=== PATIENT | female | born 1975 | race Caucasian/White ===

== ENCOUNTER 2016-05-02 10:35 | Emergency (ER) | payer BC ==
[~2016-05-02] VITALS: Ht 157.5 cm; Wt 65.0 kg
[~2016-05-02 10:35] MED LIST: IBUP800; OXYC-360 PO; PRENCAP10 PO
[2016-05-02 10:38] VITALS: BP 133/70; PULSE 75; RESP 12; TEMP 98.1; O2SAT 99
--- NOTE | 2016-05-02 11:22 | PD ---
HPI Chief Complaint: Injury Time Seen by Provider: 11:16 Travel History International Travel<30 days: No Contact w/Intl Traveler<30days: No Traveled to known affect area: No History of Present Illness HPI Patient is a 40-year-old female presenting of right calf swelling. Present for 5 days. Worsening over the last 2. Some discoloration and tenderness, worse with walking. On 04/06/2016 she had arthroscopic meniscus repair by Dr. Sol. She was fairly mobile within 24 hours and denies any reduced activity. She has tried applying heat which did not help as she thought initially this was a muscle cramp. She states it is somewhat warm. She is on oral contraceptions but denies smoking and recent inability or long distance travel. She denies a history of DVT. No history of hypercoagulable disorders. She does state that she she burned herself on the distal lateral right calf with a heating pad to this area has not been bothering her and has not had any purulent drainage from the site. She denies fever, chills, nausea, vomiting, abdominal pain, muscle weakness, paresthesias, chest pain or shortness of breath. PFSH Past Medical History Diminished Hearing: No ?: Not Past Surgical History Gynecologic Surgery: Yes (ovary removed) Social History Alcohol Use: Yes (FEW DRINKS PER WEEK) Tobacco Use: No Substance Use: No Allergies-Medications (Allergen,Severity, Reaction): Coded Allergies: No Known Allergies (Verified , 05/02/16) Reported Meds & Prescriptions Reported Meds & Active Scripts Active Xarelto (Rivaroxaban) 15 Mg Tab 15 Mg PO Q12HR 21 Days Reported [ Control] 1 Tab PO HS Oxycodone-Acetaminophen 5-325 mg Tab 1-2 Tab PO Q6H PRN Review of Systems Except as stated in HPI: all other systems reviewed are Neg Physical Exam Narrative GENERAL: Well-developed and well-nourished adult female in no acute distress. SKIN: 5 mm shallow well-healing abrasion to the right distal lateral calf. No induration, fluctuance, tenderness, warmth or erythema surrounding. No exudate. Warm and dry. Good turgor without tenting. HEAD: Normocephalic and atraumatic. EYES: PERRL bilaterally, 5mm. EOMI bilaterally. No injection or icterus present. No proptosis. Lids without edema or erythema. NECK: Supple, no midline tenderness, crepitus or step-offs. Trachea midline, no JVD. No cervical or facial lymphadenopathy. CARDIOVASCULAR: Regular rate and rhythm without murmurs, rubs, clicks or gallops. Dorsalis pedis and posterior tibial pulses 2+ bilaterally. Cap refill less than 2 seconds distal tip of all toes of right foot. Right calf is 37 cm and slightly increased rubor diffusely without blanching, positive right Homans sign. Minimal warmth present. Left calf is 37 cm. RESPIRATORY: Clear to auscultation bilaterally with symmetrical rise and fall, no distress or use of accessory muscles. GASTROINTESTINAL: Non-tender, non-distended. Normal bowel sounds all 4 quadrants. No masses or organomegaly present. MUSCULOSKELETAL: Right knee has mild edema which is improving by history with 3 well-healed. No tenderness to palpation of the knee, redness or warmth. Patient can flex the knee to 90 and extend completely Patient freely moving all four extremities spontaneously. Extremities without clubbing or cyanosis. No obvious deformities. NEUROLOGIC: CN II-XII grossly intact. Awake and alert. Strength 5/5 bilateral knee flexion, knee extension, plantar dorsiflexion. Sensation intact to the distal tip of all toes of right foot. Normal speech. PSYCHIATRIC: Appropriate mood and affect; insight and judgment normal. Data Data Last Documented VS Vital Signs Date Time Temp Pulse Resp B/P Pulse Ox O2 Delivery O2 Flow Rate FiO2 05/02/16 10:38 98.1 75 12 133/70 99 Room Air Orders Us Leg Venous Doppler (05/02/16 ) Complete Blood Count With Diff (05/02/16 11:12) Comprehensive Metabolic Panel (05/02/16 11:12) Prothrombin Time / Inr (Pt) (05/02/16 11:12) Act Partial Throm Time (Ptt) (05/02/16 11:12) Rivaroxaban (Xarelto) (05/02/16 13:00) Labs Laboratory Tests Test 05/02/16 11:20 White Blood Count 9.2 TH/MM3 Red Blood Count 4.23 MIL/MM3 Hemoglobin 12.5 GM/DL Hematocrit 36.5 % Mean Corpuscular Volume 86.3 FL Mean Corpuscular Hemoglobin 29.7 PG Mean Corpuscular Hemoglobin 34.4 % Concent Red Cell Distribution Width 12.1 % Platelet Count 374 TH/MM3 Mean Platelet Volume 6.8 FL Neutrophils (%) (Auto) 69.3 % Lymphocytes (%) (Auto) 23.1 % Monocytes (%) (Auto) 5.8 % Eosinophils (%) (Auto) 1.1 % Basophils (%) (Auto) 0.7 % Neutrophils # (Auto) 6.4 TH/MM3 Lymphocytes # (Auto) 2.1 TH/MM3 Monocytes # (Auto) 0.5 TH/MM3 Eosinophils # (Auto) 0.1 TH/MM3 Basophils # (Auto) 0.1 TH/MM3 CBC Comment DIFF FINAL Differential Comment Prothrombin Time 9.8 SEC Prothromb Time International 0.9 RATIO Ratio Activated Partial 26.4 SEC Thromboplast Time Sodium Level 134 MEQ/L Potassium Level 4.7 MEQ/L Chloride Level 104 MEQ/L Carbon Dioxide Level 20.3 MEQ/L Anion Gap 10 MEQ/L Blood Urea Nitrogen 9 MG/DL Creatinine 0.73 MG/DL Estimat Glomerular Filtration 89 ML/MIN Rate Random Glucose 104 MG/DL Calcium Level 8.5 MG/DL Total Bilirubin 0.5 MG/DL Aspartate Amino Transf 24 U/L (AST/SGOT) Alanine Aminotransferase 18 U/L (ALT/SGPT) Alkaline Phosphatase 82 U/L Total Protein 7.3 GM/DL Albumin 3.1 GM/DL MDM Medical Decision Making Medical Screen Exam Complete: Yes Emergency Medical Condition: Yes Interpretation(s) Laboratory Tests Test 05/02/16 11:20 White Blood Count 9.2 TH/MM3 (4.0-11.0) Red Blood Count 4.23 MIL/MM3 (4.00-5.30) Hemoglobin 12.5 GM/DL (11.6-15.3) Hematocrit 36.5 % (35.0-46.0) Mean Corpuscular Volume 86.3 FL (80.0-100.0) Mean Corpuscular Hemoglobin 29.7 PG (27.0-34.0) Mean Corpuscular Hemoglobin 34.4 % Concent (32.0-36.0) Red Cell Distribution Width 12.1 % (11.6-17.2) Platelet Count 374 TH/MM3 (150-450) Mean Platelet Volume 6.8 FL (7.0-11.0) Neutrophils (%) (Auto) 69.3 % (16.0-70.0) Lymphocytes (%) (Auto) 23.1 % (9.0-44.0) Monocytes (%) (Auto) 5.8 % (0.0-8.0) Eosinophils (%) (Auto) 1.1 % (0.0-4.0) Basophils (%) (Auto) 0.7 % (0.0-2.0) Neutrophils # (Auto) 6.4 TH/MM3 (1.8-7.7) Lymphocytes # (Auto) 2.1 TH/MM3 (1.0-4.8) Monocytes # (Auto) 0.5 TH/MM3 (0-0.9) Eosinophils # (Auto) 0.1 TH/MM3 (0-0.4) Basophils # (Auto) 0.1 TH/MM3 (0-0.2) CBC Comment DIFF FINAL Differential Comment Prothrombin Time 9.8 SEC (9.8-11.6) Prothromb Time International 0.9 RATIO Ratio Activated Partial 26.4 SEC Thromboplast Time (24.3-30.1) Sodium Level 134 MEQ/L (136-145) Potassium Level 4.7 MEQ/L (3.5-5.1) Chloride Level 104 MEQ/L (98-107) Carbon Dioxide Level 20.3 MEQ/L (21.0-32.0) Anion Gap 10 MEQ/L (5-15) Blood Urea Nitrogen 9 MG/DL (7-18) Creatinine 0.73 MG/DL (0.50-1.00) Estimat Glomerular Filtration 89 ML/MIN (>89) Rate Random Glucose 104 MG/DL (74-106) Calcium Level 8.5 MG/DL (8.5-10.1) Total Bilirubin 0.5 MG/DL (0.2-1.0) Aspartate Amino Transf 24 U/L (15-37) (AST/SGOT) Alanine Aminotransferase 18 U/L (10-53) (ALT/SGPT) Alkaline Phosphatase 82 U/L (45-117) Total Protein 7.3 GM/DL (6.4-8.2) Albumin 3.1 GM/DL (3.4-5.0) Differential Diagnosis DVT versus cellulitis versus dependent edema versus compartment syndrome unlikely Narrative Course Patient is a 40-year-old female on oral contraception had right knee arthroscopic meniscal repair on April 06, 2016 presenting with pain, swelling and warmth and discoloration of the right calf for the last 5 days. It has progressively worsened. Some increased rubor and minimal warmth in the right calf is 2 cm larger than the left. Given the history of this is concerning for DVT. This does not appear cellulitic. Patient has normal vital signs and has no cardiopulmonary or systemic symptoms, is afebrile and nontoxic appearing. Ordered right leg venous Doppler and labs. CBC and INR unremarkable. Metabolic panel shows sodium 134, bicarbonate 20.3, anion gap 3.1. Ultrasound does reveal Nonocclusive DVT in the Popliteal and Peroneal Veins. Discussed the results with Dr. Cheek who agreed Xarelto would likely be appropriate treatment , pending ortho call. Spoke with Aletha GRAVES to Dr. Sol who stated Xarelto was okay as she was sufficiently far from surgery at this time. He was aware of the patient as she called the on-call service this morning and he is on is suggested she come here. She will call to follow-up tomorrow. She was given Xarelto 15 mg by mouth here and a prescription to initiate Xarelto.See discharge paperwork for further instructions. The plan was discussed with the patient who acknowledged their understanding and agreement. Reinforced the follow-up with primary care is critically important. Patient instructed on emergent conditions that should prompt return to ED.I discussed this patient with Dr. Cheek throughout their care. She has also evaluated this patient, helped formulate, and agrees with the assessment and plan. Diagnosis Primary Impression: DVT (deep venous thrombosis) Qualified Code: I82.401 - Acute deep vein thrombosis (DVT) of right lower extremity, unspecified vein Patient Instructions: Deep Venous Thrombosis (ED), General Instructions Additional Instructions: Take medication as prescribed OTC Tylenol as needed for comfort Follow-up with the orthopedic surgeon and PCP in one to 2 days Return to the ED for any acute worsening of symptoms including chest pain or shortness of breath Med/Other Pt SpecificInfo: Prescription(s) given Scripts Rivaroxaban (Xarelto)15 Mg Tab15 Mg PO Q12HR 21 Days Ref 0 Prov:Sil Cheek MD 05/02/16 Disposition: 01 DISCHARGE HOME Condition: Stable Cb Lea III May 02, 2016 11:22
[2016-05-02] MEDS ORDERED: BIRTH CONTROL PO (11:23)
[2016-05-02] MEDS ORDERED: OXYC1TAB63 PO (11:23)
[2016-05-02 11:33] LABS: AUTOMATED NEUTROPHIL # 6.4 TH/MM3 (1.8-7.7); BASOPHIL # 0.1 TH/MM3 (0-0.2); BASOPHIL % 0.7 % (0.0-2.0); EOSINOPHIL # 0.1 TH/MM3 (0-0.4); EOSINOPHIL % 1.1 % (0.0-4.0); HEMATOCRIT 36.5 % (35.0-46.0); HEMO FLAGS DIFF FINAL; LYMPH % 23.1 % (9.0-44.0); LYMPHOCYTE # 2.1 TH/MM3 (1.0-4.8); MEAN CELL VOLUME 86.3 FL (80.0-100.0); MEAN CORPUSCULAR HEMOGLOBIN 29.7 PG (27.0-34.0); MEAN CORPUSCULAR HGB CONC 34.4 % (32.0-36.0); MONO % 5.8 % (0.0-8.0); NEUT % 69.3 % (16.0-70.0); PLATELET COUNT 374 TH/MM3 (150-450); RED BLOOD COUNT 4.23 MIL/MM3 (4.00-5.30); RED CELL DISTRIBUTION WIDTH 12.1 % (11.6-17.2); WHITE BLOOD COUNT 9.2 TH/MM3 (4.0-11.0)
[2016-05-02 11:51] LABS: ALT (GPT) 18 U/L (10-53); ANION GAP 10 MEQ/L (5-15); AST (GOT) 24 U/L (15-37); BICARBONATE 20.3 MEQ/L (21.0-32.0); BLOOD UREA NITROGEN 9 MG/DL (7-18); CHLORIDE 104 MEQ/L (98-107); GLOMERULAR FILTRATION RATE 89 ML/MIN (>89); POTASSIUM 4.7 MEQ/L (3.5-5.1); SODIUM (NA) 134 MEQ/L (136-145)
[2016-05-02 11:52] LABS: APTT (PATIENT) 26.4 SEC (24.3-30.1); INTERNATIONAL NORMALIZED RATIO 0.9 RATIO; PROTHROMBIN TIME - PATIENT 9.8 SEC (9.8-11.6)
[2016-05-02 11:53] LABS: ALKALINE PHOSPHATASE 82 U/L (45-117); TOTAL BILIRUBIN ADULT 0.5 MG/DL (0.2-1.0)
--- NOTE | 2016-05-02 12:11 | RADRPT ---
EXAM DATE/TIME: 05/02/2016 11:37 This report includes an Addendum and supersedes previous reports for this exam. [facility] COMPARISON: No previous studies available for comparison. INDICATIONS : Right leg pain and swelling. Knee surgery 04/06/16. MEDICAL HISTORY : Right leg pain and swelling SURGICAL HISTORY : section. Left frontal lobe brain tumor removal. Right oopherectomy. Right knee surgery. ENCOUNTER: Initial ACUITY: 3 days PAIN SCORE: 2/10 LOCATION: Right leg. TECHNIQUE: Venous ultrasound of the leg was performed from the inguinal ligament to the proximal calf. Real-alea e, color Doppler and spectral tracing, compression and augmentation techniques were used. FINDINGS: There is normal compressibility of the deep venous system from the inguinal region to the proximal ca lf. No echogenic clot is seen in the lumen of the common femoral, femoral, popliteal, and posterior tibial veins. There is a normal response of the venous system to proximal and distal augmentation an d respiration. CONCLUSION: Nonocclusive popliteal and peroneal venous thrombosis. Isrrael Paige MD on May 02, 2016 at 12:09 Board Certified Radiologist. This report was verified electronically. ADDENDUM: Please note the findings report dictated above should read as follows, please disregard the above fin dings section: There is nonocclusive thrombus in the popliteal and peroneal veins. The common femoral, iliac, femora l and posterior tibial veins are patent with a normal grayscale and color Doppler appearance. Isrrael Paige MD on May 02, 2016 at 12:46 Board Certified Radiologist. This report was verified electronically.
[2016-05-02] MEDS ORDERED: XARE15TA PO (12:59)
[2016-05-02] MEDS ORDERED: RIVAROXABAN 15 MG TAB PO ONE (13:00)
--- NOTE | 2016-05-02 14:22 | PD ---
Data Data Last Documented VS Vital Signs Date Time Temp Pulse Resp B/P Pulse Ox O2 Delivery O2 Flow Rate FiO2 05/02/16 10:38 98.1 75 12 133/70 99 Room Air Orders Us Leg Venous Doppler (05/02/16 ) Complete Blood Count With Diff (05/02/16 11:12) Comprehensive Metabolic Panel (05/02/16 11:12) Prothrombin Time / Inr (Pt) (05/02/16 11:12) Act Partial Throm Time (Ptt) (05/02/16 11:12) Rivaroxaban (Xarelto) (05/02/16 13:00) Labs Laboratory Tests Test 05/02/16 11:20 White Blood Count 9.2 TH/MM3 Red Blood Count 4.23 MIL/MM3 Hemoglobin 12.5 GM/DL Hematocrit 36.5 % Mean Corpuscular Volume 86.3 FL Mean Corpuscular Hemoglobin 29.7 PG Mean Corpuscular Hemoglobin 34.4 % Concent Red Cell Distribution Width 12.1 % Platelet Count 374 TH/MM3 Mean Platelet Volume 6.8 FL Neutrophils (%) (Auto) 69.3 % Lymphocytes (%) (Auto) 23.1 % Monocytes (%) (Auto) 5.8 % Eosinophils (%) (Auto) 1.1 % Basophils (%) (Auto) 0.7 % Neutrophils # (Auto) 6.4 TH/MM3 Lymphocytes # (Auto) 2.1 TH/MM3 Monocytes # (Auto) 0.5 TH/MM3 Eosinophils # (Auto) 0.1 TH/MM3 Basophils # (Auto) 0.1 TH/MM3 CBC Comment DIFF FINAL Differential Comment Prothrombin Time 9.8 SEC Prothromb Time International 0.9 RATIO Ratio Activated Partial 26.4 SEC Thromboplast Time Sodium Level 134 MEQ/L Potassium Level 4.7 MEQ/L Chloride Level 104 MEQ/L Carbon Dioxide Level 20.3 MEQ/L Anion Gap 10 MEQ/L Blood Urea Nitrogen 9 MG/DL Creatinine 0.73 MG/DL Estimat Glomerular Filtration 89 ML/MIN Rate Random Glucose 104 MG/DL Calcium Level 8.5 MG/DL Total Bilirubin 0.5 MG/DL Aspartate Amino Transf 24 U/L (AST/SGOT) Alanine Aminotransferase 18 U/L (ALT/SGPT) Alkaline Phosphatase 82 U/L Total Protein 7.3 GM/DL Albumin 3.1 GM/DL [facility] Supervised Visit with NARENDRA: Yes Narrative Course The history, exam, and medical decision-making in the associated midlevel provider note were completed with my assistance. I reviewed and agree with the findings presented. I attest that I had a [id number] encounter with the patient on the same day, and personally performed and documented my assessment and findings in the medical record. *My assessment and Findings: This is a 40-year-old female who presents to the emergency department having recently had a knee surgery with swelling and pain in her lower extremity. Ultrasound demonstrates nonocclusive popliteal and peroneal vein DVT. Physician business assistant spoke to the orthopedic surgeon who agrees with outpatient xarelto. Patient is not currently having any chest pain or shortness of breath to suggest pulmonary embolism. She is safe for outpatient management. Diagnosis Primary Impression: DVT (deep venous thrombosis) Qualified Code: I82.401 - Acute deep vein thrombosis (DVT) of right lower extremity, unspecified vein Patient Instructions: General Instructions, Deep Venous Thrombosis (ED) Departure Forms: Tests/Procedures Additional Instruction: Take medication as prescribed OTC Tylenol as needed for comfort Follow-up with the orthopedic surgeon and PCP in one to 2 days Return to the ED for any acute worsening of symptoms including chest pain or shortness of breath Scripts Rivaroxaban (Xarelto)15 Mg Tab15 Mg PO Q12HR 21 Days Ref 0 Prov:Sil Cheek MD 05/02/16 Disposition: 01 DISCHARGE HOME Condition: Stable Sil Cheek MD May 02, 2016 14:22
== END 2016-05-02 14:00 | disposition home or self-care (01) ==
LOC: NEPC 10:35
DX: I82.401 Acute embolism and thrombosis of unspecified deep veins of right lower extremity (principal); Z79.3 Long term (current) use of hormonal contraceptives; Z98.890 Other specified postprocedural states
CPT/HCPCS: 80053; 85025; 85610; 85730; 93971

== ENCOUNTER 2017-02-28 15:30 | Emergency (ER) | payer BC ==
[~2017-02-28] VITALS: Ht 165.1 cm; Wt 70.0 kg
[~2017-02-28 15:30] MED LIST changes: +BIRTH CONTROL PO; -IBUP800; -OXYC-360 PO; +OXYC1TAB63 PO; -PRENCAP10 PO; +XARE15TA PO
[2017-02-28 15:31] VITALS: BP 166/87; PULSE 74; RESP 16; TEMP 98.6; O2SAT 98
--- NOTE | 2017-02-28 15:58 | PD ---
Physical Exam Date Seen by Provider: Feb 28, 2017 Time Seen by Provider: 15:56 Narrative 41-year-old white female presents to emergency department with complains of right calf pain and swelling 1 week. History of DVT in the past. She has been off her blood thinner now for 2 months. She is referred to the ER for evaluation. No chest pain or shortness of breath. No palpitations. Symptoms are [id number]. Vital signs reviewed. Pt waiting for bed placement. Data Data Last Documented VS Vital Signs Date Time Temp Pulse Resp B/P (MAP) Pulse Ox O2 Delivery O2 Flow Rate FiO2 02/28/17 15:31 98.6 74 16 166/87 (113) 98 Room Air [facility] Medical Record Reviewed: No Supervised Visit with NARENDRA: Rachid Hall Feb 28, 2017 15:58
--- NOTE | 2017-02-28 17:21 | RADRPT ---
EXAM DATE/TIME: 02/28/2017 16:44 [facility] COMPARISON: US LEG RIGHT VENOUS DOPPLER, May 02, 2016, 11:37. INDICATIONS : Right leg swelling. MEDICAL HISTORY : Right leg pain and swelling SURGICAL HISTORY : section. Left frontal lobe brain tumor removal. Right oopherectomy. Right knee surgery. ENCOUNTER: Subsequent ACUITY: 4 - 6 days PAIN SCORE: 3/10 LOCATION: Right leg. TECHNIQUE: Venous ultrasound of the leg was performed from the inguinal ligament to the proximal calf. Real-alea e, color Doppler and spectral tracing, compression and augmentation techniques were used. FINDINGS: There is normal compressibility of the deep venous system from the inguinal region to the proximal ca lf. No echogenic clot is seen in the lumen of the common femoral, femoral, popliteal, and posterior tibial veins. There is a normal response of the venous system to proximal and distal augmentation an d respiration. CONCLUSION: The study is negative for deep venous thrombosis right lower extremity. Geovanny Powers MD on February 28, 2017 at 17:18 Board Certified Radiologist. This report was verified electronically.
[2017-02-28] MEDS ORDERED: NAPR375T4 PO (17:49)
[2017-02-28] MEDS ORDERED: BACL10TA PO (17:49)
--- NOTE | 2017-02-28 17:54 | PD ---
HPI Chief Complaint: Pain: Acute or Chronic Time Seen by Provider: 17:33 Travel History International Travel<30 days: No Contact w/Intl Traveler<30days: No Traveled to known affect area: No History of Present Illness HPI c/o right calf pain, 5/10, with possible calf swelling ongoing for past 3 days or so....denies fever/cough/sob/n/v/d/recent falls or trauma....no alleviating/ aggravating factors previous h/o dvt and treated with xarelto in may, taken off xarelto around january. PFSH Past Medical History Diminished Hearing: No Past Surgical History Section: Yes Gynecologic Surgery: Yes (R OOPHERECTOMY) Neurologic Surgery: Yes (LEFT FRONTAL LOBE BRAIN TUMOR REMOVED (2009)) Social History Alcohol Use: Yes (FEW DRINKS PER WEEK) Tobacco Use: No Substance Use: No Allergies-Medications (Allergen,Severity, Reaction): Coded Allergies: No Known Allergies (Verified , 05/02/16) Reported Meds & Prescriptions Reported Meds & Active Scripts Active Xarelto (Rivaroxaban) 15 Mg Tab 15 Mg PO Q12HR 21 Days Reported [ Control] 1 Tab PO HS Oxycodone-Acetaminophen 5-325 mg Tab 1-2 Tab PO Q6H PRN Review of Systems Except as stated in HPI: all other systems reviewed are Neg General / Constitutional: No: Fever Eyes: No: Visual changes HENT: No: Headaches Cardiovascular: No: Chest Pain or Discomfort Respiratory: No: Shortness of Breath Gastrointestinal: No: Abdominal Pain Genitourinary: No: Dysuria Musculoskeletal: Positive: Other (rt calf pain) Skin: No Rash Neurologic: No: Weakness Psychiatric: No: Depression Endocrine: No: Polydipsia Hematologic/Lymphatic: No: Easy Bruising Physical Exam Narrative GENERAL: SKIN: Warm and dry. HEAD: Atraumatic. Normocephalic. EYES: Pupils equal and round. No scleral icterus. No injection or drainage. ENT: No nasal bleeding or discharge. Mucous membranes pink and moist. NECK: Trachea midline. No JVD. CARDIOVASCULAR: Regular rate and rhythm. RESPIRATORY: No accessory muscle use. Clear to auscultation. Breath sounds equal bilaterally. GASTROINTESTINAL: Abdomen soft, non-tender, nondistended. MUSCULOSKELETAL: Extremities without clubbing, cyanosis, or edema. No obvious deformities. NEUROLOGICAL: Awake and alert. No obvious cranial nerve deficits. Motor grossly within normal limits. Five out of 5 muscle strength in the arms and legs. Normal speech. PSYCHIATRIC: Appropriate mood and affect; insight and judgment normal. Data Data Last Documented VS Vital Signs Date Time Temp Pulse Resp B/P (MAP) Pulse Ox O2 Delivery O2 Flow Rate FiO2 02/28/17 15:31 98.6 74 16 166/87 (113) 98 Room Air Orders Orders Us Leg Venous Doppler (02/28/17 15:58) MDM Medical Decision Making Medical Screen Exam Complete: Yes Emergency Medical Condition: Yes Medical Record Reviewed: Yes Differential Diagnosis calf strain v cellulitis v lympahngitis v dvt v bakers cyst Narrative Course ultrasound neg for dvt or bakers cyst. also exam neg for cellulitis/ lymphangitis at this point Diagnosis Primary Impression: Strain of calf muscle Qualified Codes: S86.811A - Strain of other muscle(s) and tendon(s) at lower leg level, right leg, initial encounter Additional Instructions: ultrasound negative for deep vein clot, please keep your appointment with your pediatric allergist Scripts Naproxen DR (Naproxen EC) 375 Mg Tabdr 375 MG PO BID, #20 TAB 0 Refills Prov: Ab Brown MD 02/28/17 Baclofen (Baclofen) 10 Mg Tab 10 MG PO TID, #15 TAB 0 Refills Prov: Ab Brown MD 02/28/17 Disposition: 01 DISCHARGE HOME Condition: Stable Ab Brown MD Feb 28, 2017 17:54
== END 2017-02-28 18:14 | disposition home or self-care (01) ==
LOC: NEPD 15:30
DX: S86.811A Strain of other muscle(s) and tendon(s) at lower leg level, right leg, initial encounter (principal); X58.XXXA Exposure to other specified factors, initial encounter; Z86.718 Personal history of other venous thrombosis and embolism
CPT/HCPCS: 93971